=== PATIENT | female | born 1990 | race Caucasian/White ===

== ENCOUNTER → 2024-09-21 13:21 | Outpatient (REF) | payer BC, SELFPAY | LOC: PNTC 13:21 | PROVIDERS: ATTENDING PHYSICIAN Obstetrics & Gynecology | DX: O99.210 Obesity complicating pregnancy, unspecified trimester (principal); Z36.0 Encounter for antenatal screening for chromosomal anomalies; Z36.82 Encounter for antenatal screening for nuchal translucency | CPT/HCPCS: 36415; 76801; 76813 ==

== ENCOUNTER → 2024-10-20 08:55 | Outpatient (REF) | payer BC, SELFPAY | LOC: PNTC 08:55 | PROVIDERS: ATTENDING PHYSICIAN Obstetrics & Gynecology | DX: O99.210 Obesity complicating pregnancy, unspecified trimester (principal) | CPT/HCPCS: 76805 ==

== ENCOUNTER → 2024-11-16 07:34 | Outpatient (REF) | payer BC, SELFPAY | LOC: PNTC 07:34 | PROVIDERS: ATTENDING PHYSICIAN Obstetrics & Gynecology | DX: O99.210 Obesity complicating pregnancy, unspecified trimester (principal) | CPT/HCPCS: 76811 ==

== ENCOUNTER → 2024-12-29 07:38 | Outpatient (REF) | payer BC, SELFPAY | LOC: PNTC 07:38 | PROVIDERS: ATTENDING PHYSICIAN Obstetrics & Gynecology | DX: O99.210 Obesity complicating pregnancy, unspecified trimester (principal); O99.280 Endocrine, nutritional and metabolic diseases complicating pregnancy, unspecified trimester; O24.419 Gestational diabetes mellitus in pregnancy, unspecified control | CPT/HCPCS: 76816 ==

== ENCOUNTER → 2025-02-21 16:42 | Outpatient (REF) | payer BC, SELFPAY | LOC: PNTC 16:42 | PROVIDERS: ATTENDING PHYSICIAN Obstetrics & Gynecology | DX: O99.210 Obesity complicating pregnancy, unspecified trimester (principal); O99.280 Endocrine, nutritional and metabolic diseases complicating pregnancy, unspecified trimester | CPT/HCPCS: 76816 ==

== ENCOUNTER 2025-04-02 09:01 | Inpatient (IN) | payer BC, SELFPAY ==
[2025-04-02 09:12] VITALS: BP 140/82; BMI 34.2
[2025-04-02 09:27] LABS: % Basophils 0.4 % (0-2); % Eosinophils 0.9 % (0-6); % Immature Granulocytes 0.5 % (0-0.5); % Lymphocytes 19.5 % (20.5-51.1); % Monocytes 4.5 % (1.7-9.3); % Neutrophils 74.2 % (42.2-75.2); Absolute Basophils 0.1 10^3/uL (0-0.2); Absolute Eosinophils 0.1 10^3/uL (0-0.7); Absolute Immature Granulocytes 0.1 10^3/uL (0-0.05); Absolute Lymphocytes 2.6 10^3/uL (1.2-3.4); Absolute Monocytes 0.6 10^3/uL (0.1-0.6); Absolute Neutrophils 9.7 10^3/uL (1.4-6.5); Hematocrit 38.2 % (37.0-47.0); Hemoglobin 13.2 g/dL (12.0-16.0); Mean Corp Hgb Conc. 34.6 g/dL (33.0-37.0); Mean Corpuscular Hgb 30.3 pg (27.0-31.0); Mean Corpuscular Volume 87.6 fL (81.0-99.0); Mean Platelet Volume 10.8 fL (7.4-10.4); Nucleated Red Blood Cells % 0 %; Platelet Count 258 10^3/uL (130-400); Red Blood Cell Count 4.36 10^6/uL (4.20-5.40); Red Cell Dist. Width 12.5 % (11.5-14.5); White Blood Cell Count 13.1 10^3/uL (4.8-10.8)
[2025-04-02] MEDS: LR 1000 IV ×3 (09:32→12:00)
[2025-04-02] MEDS: PENICILLIN 110 UNITS IV (09:32)
[2025-04-02] MEDS: SUBLIMAZE 100 MCG EPIDURAL (09:57)
[2025-04-02] MEDS: FENTANYL/BUPIVACAINE 100 EPIDURAL (09:58)
[2025-04-02] MEDS: PITOCIN 30 UNITS/NSS 500 ML IV (13:02)
[2025-04-02 13:24] LABS: Cord VBG B.E. - POC -4.6 mmol/L; Cord VBG HCO3 - POC 22 mmol/L; Cord VBG pCO2 - POC 45 mmHg; Cord VBG pO2 - POC 29 mmHg
[2025-04-02] MEDS: HEMABATE 250 MCG IM (13:35)
[2025-04-02] MEDS: MOTRIN 600 MG PO (20:34)
[2025-04-02] MEDS: TYLENOL 650 MG PO (20:35)
[2025-04-03] MEDS: TYLENOL 650 MG PO ×4 (02:33→20:56)
[2025-04-03] MEDS: MOTRIN 600 MG PO ×4 (02:33→20:56)
[2025-04-03 04:42] LABS: Hematocrit 32.7 % (37.0-47.0); Hemoglobin 11.1 g/dL (12.0-16.0)
[2025-04-03] MEDS: SYNTHROID 75 MCG PO (06:10)
[2025-04-03] MEDS: PRENATAL PLUS 1 TABLET PO (08:38)
[2025-04-03] MEDS: CLARITIN 10 MG PO (08:40)
[2025-04-04] MEDS: MOTRIN 600 MG PO ×2 (03:09→08:11)
[2025-04-04] MEDS: TYLENOL 650 MG PO ×2 (03:10→08:07)
[2025-04-04] MEDS: SYNTHROID 75 MCG PO (05:58)
[2025-04-04] MEDS: PRENATAL PLUS 1 TABLET PO (08:07)
[2025-04-04] MEDS: CLARITIN 10 MG PO (08:11)
[2025-04-04 13:07] LABS: Syphilis/T. pallidum Ab Reflex Negative (Negative)
== END 2025-04-04 11:41 | disposition home or self-care (01) | DRG 807 ==
LOC: LDRP 09:01
PROVIDERS: ADMITTING PHYSICIAN Obstetrics & Gynecology; ATTENDING PHYSICIAN Obstetrics & Gynecology; FAMILY PHYSICIAN Family Medicine
PROC: 10E0XZZ Delivery of Products of Conception, External Approach (ICD-10-PCS; 2025-04-02)
DX: O99.824 Streptococcus B carrier state complicating childbirth (principal); Z37.0 Single live birth; Z3A.40 40 weeks gestation of pregnancy; O69.81X0 Labor and delivery complicated by cord around neck, without compression, not applicable or unspecified
CPT/HCPCS: 88307; 36415; 85014; 85018; 85025; 86780; 86850; 86900; 86901